=== PATIENT | male | born 2000 | race Caucasian/White ===

== ENCOUNTER 2019-06-23 07:15 | Day surgery (SDC) | payer OTHER ==
[2019-06-23] MEDS ORDERED: FENTANYL CITRATE INJ/PF 100 MCG/2 ML AMPUL ONE ×2 (07:42→13:34)
[2019-06-23] MEDS ORDERED: HYDROMORPHONE HCL INJ/PF 2 MG/ML AMPULE ONE (07:42)
[2019-06-23] MEDS ORDERED: PROPOFOL INJ 200 MG/20 ML VIAL IV ONE ×2 (07:42→13:35)
[2019-06-23] MEDS ORDERED: MIDAZOLAM 2 MG/2 ML INJ ONE ×2 (07:42→13:35)
[2019-06-23] MEDS ORDERED: CEFAZOLIN SODIUM 2 GM in DEXTROSE 5%-WATER 100 ML IV PRN (08:00)
[2019-06-23] MEDS ORDERED: CEFAZOLIN INJ 1 GM VIAL ONE (08:22)
[2019-06-23] MEDS ORDERED: BUPIVACAINE HCL 0.5 % INJ/PF 30 ML SDV ONE (08:49)
[2019-06-23] MEDS ORDERED: LIDOCAINE 1% INJ-PF (10 MG/ML) 30 ML SDV ONE (08:50)
[2019-06-23] MEDS ORDERED: EPHEDRINE SULFATE INJ 50 MG/1 ML AMPULE ONE (09:53)
[2019-06-23] MEDS ORDERED: ROCURONIUM BROMIDE INJ 50 MG/5 ML VIAL IV ONE (10:16)
[2019-06-23] MEDS ORDERED: ONDANSETRON HCL INJ/PF 4 MG/2 ML SDV ONE ×2 (10:16→11:57)
[2019-06-23] MEDS ORDERED: KETOROLAC TROMETHAMINE 60 MG/2 ML SDV ONE (10:16)
[2019-06-23] MEDS ORDERED: DEXAMETHASONE SOD PHOSPHATE INJ 4 MG/1 ML VIAL ONE (10:16)
[2019-06-23] MEDS ORDERED: SUCCINYLCHOLINE CHLORIDE INJ 200 MG/10 ML VIAL ONE (10:16)
[2019-06-23] MEDS ORDERED: MORPHINE SULFATE 10 MG/ML INJ IV PRN ×2 (10:56→11:57)
[2019-06-23] MEDS ORDERED: DIPHENHYDRAMINE HCL 50 MG/ML VIAL IV PRN (10:56)
[2019-06-23] MEDS ORDERED: PROMETHAZINE HCL INJ 25 MG/1 ML VIAL IV PRN ×2 (10:56)
[2019-06-23] MEDS ORDERED: FENTANYL CITRATE INJ/PF 100 MCG/2 ML AMPUL IV PRN ×3 (10:56)
[2019-06-23] MEDS ORDERED: MEPERIDINE HCL/PF INJ 25 MG/1 ML DISP.SYRIN IV PRN (10:56)
[2019-06-23] MEDS ORDERED: OXYCODONE-ACETAMINOPHEN 5-325 MG TABLET PO PRN ×3 (10:56→11:57)
--- NOTE | 2019-06-23 11:58 | Discharge Summary ---
Discharge Summary (SDC) - Discharge Final Diagnosis: Right fourth metacarpal shaft fracture Date of Surgery: 06/23/19 Discharge Date: 06/23/19 Condition: Good Forms: ASU Anesthesia D/C Instruction, Discharge POC-Surgical Service Treatment or Instructions: Schedule Follow Up w/ Dr. Nathan Velez @ [facility] for Surgery to be seen in 10-14 days or as scheduled [place]: [place]: [place]: Ice and elevate Keep splint clean/dry/intact, do not remove. If your fingers become numb please unwrap the [place]es wrap but leave the splint in place, if the sensation does not return within 30 minutes please return to the emergency department. May begin finger range of motion attempting to make full fist. Please use ibuprofen (Motrin or Advil) 600-800 mg every 8 hours as needed for pain or fever DO NOT TAKE w/ TORADOL may use once TORADOL complete. You may also use acetaminophen (Tylenol) 1000 mg every 4-6 hours as needed for pain or fever. Please be aware that many medications contain acetaminophen, do not exceed a total of 1000 mg of acetaminophen every 6 hours. If ibuprofen and acetaminophen are not sufficient for your pain you may take the Percocet/Merriman. Please be aware that the Percocet/Merriman does contain Tylenol. Stool softener of choice when on pain medication. USE OF [id number] IBUPROFEN: Ibuprofen (Advil, Nuprin, Medipren, Motrin IB) is a medication for fever and pain control. In addition, it has anti- inflammatory effects which may be beneficial, especially in the treatment of injuries. It's best to take ibuprofen with food. Persons with ulcer disease or allergy to aspirin should notify their physician of this before taking ibuprofen. Ibuprofen can be given every four to six hours, for a total of four doses daily. Age Pain or fever dose Antiinflammatory dose 6-8 yr 200 mg (1 tab) 200 mg (1 tab) 9-11 yr 200 mg (1 tab) 200-400 mg (1-2 tab) 11-14 yr 200-400 mg (1-2 tab) 400 mg (2 tab) 15-adult 400 mg (2 tab) 600 mg (3 tab) ORAL NARCOTIC MEDICATION: You have been given a prescription for pain control. This medication is a narcotic. It's best taken with food, as nausea can result if taken on an empty stomach. Don't operate machinery or drive within six hours of taking this medication. Do not combine this medicine with alcohol, or with any medication which can cause sedation (such as cold tablets or sleeping pills) unless you get permission from the physician. Narcotics tend to cause constipation. If possible, drink plenty of fluids and eat a diet high in fiber and fruits. Please be aware that prescription narcotics also have the potential for abuse. People become addicted to these medications because of the general sense of wellbeing that they induce. This feeling along with a significant reduction in tension, anxiety, and aggression provides a stimulating seductive quality to these drugs. Once your pain is under control, we encourage you to discard your unused narcotics. Prescriptions: Oxycodone HCl/Acetaminophen [Percocet 5-325 mg Tablet] 1 tab PO Q6 PRN #25 tab PRN Reason: Discharge Diet: As Tolerated Respiratory Treatments at Home: Deep Breathing/Coughing Discharge Activity: No Lifting Over 10 Pounds, No Lifting/Push/Pulling Report the Following to Your Physician Immediately: Fever over 101 Degrees, Unusual Bleeding, Redness, Swelling, Warmth
--- NOTE | 2019-06-23 12:01 | Operative Report ---
Operative Report DATE OF SURGERY: 06/23/19 PREOPERATIVE DIAGNOSIS: Right fourth metacarpal shaft fracture POSTOPERATIVE DIAGNOSIS: Same OPERATION: ORIF right fourth metacarpal shaft SURGEON: CONNOR MCDANIELS ANESTHESIA: GA COMPLICATIONS: None ESTIMATED BLOOD LOSS: Minimal PROCEDURE: Indication for above procedure: 19-year-old male who sustained a fracture of his fourth metacarpal when punching a wall. Patient was seen at [facility] where x-rays confirmed fracture patient was attempted be treated conservatively but developed shortening and angulation at that point decision was made to proceed with operative intervention. I discussed risks and benefits of operative procedure patient verbalized understanding consented for surgical procedure. Procedure In Detail: Patient was seen and evaluated in the preoperative holding area. The RIGHT upper extremity was initialized and marked. Patient received 2g of Ancef IV for bacterial prophylaxis. Patient was taken back to the operative room where transferred to the operative table and placed under general anesthesia. Once they were adequately anesthetized a nonsterile tourniquet was placed on the upper extremity. A surgical team debriefing was performed ensuring all instrumentation was available, the surgical procedure was discussed with possible concerns reviewed. The upper extremity was prepped with chlorhexidine and alcohol and draped in a sterile fashion. A timeout was done identifying correct patient, procedure and extremity everyone in attendance agree with this and verbalized no concerns. The extremity was exsanguinated the tourniquet was inflated to 250 mmHg. Longitudinal skin incision was made over the fourth metacarpal. Blunt dissection was performed. Interval between the EDC and EDM was established. Dorsal interossei was elevated to expose the underlying fracture. Supraperiosteal dissection was performed proximally and distally. Intervening granulation tissue at the fracture site was sharply excised. Under direct visualization the oblique fracture was anatomically reduced. Via lag screw technique a 1.7 mm [place] compression screw was placed perpendicular to the fracture site maintaining anatomic reduction. C-arm fluoroscopy was then obtained confirming adequate reduction there was no evidence of malrotation. A Eloy 2.3 mm Y-shaped plate was then placed and confirmed with C arm fluoroscopy. Cortical fixation was then obtained proximally and distally to the fracture. Additional cortex screw and locking screw was placed along the proximal aspect. Locking screw was placed along the distal aspect. There was no evidence of malrotation with tenodesis. C arm fluoroscopy was obtained confirming appropriate placement of the plate and reduction of the fracture. Wound was copiously irrigated with normal saline. 20 cc of 0.5% Vivacaine without epinephrine was injected for postoperative pain control. Dorsal interossei fascia was closed with interrupted 3-0 Vicryl suture. Subcutaneous tissues closed with interrupted 3-0 Vicryl suture. Skin was closed running subcuticular 4-0 Monocryl reinforced with Dermabond and Steri-Strips. Patient was placed in a short arm splint immobilizing the fourth MCP joint with the IP joints free. Sponge counts, instrument counts, needle counts were correct. Patient was then awoken from anesthesia. Transferred from the operating room table to the operating room stretcher. There was no intraoperative complications patient tolerated procedure well stable to PACU. Postop plan: Patient follow in the office in 2 weeks at which point we will obtain radiographs and transition to Exos fracture brace
[2019-06-23] MEDS ORDERED: OXYCODONE-ACETAMINOPHEN 5-325 MG TABLET ONE (13:06)
--- NOTE | 2019-06-23 13:11 | RADIOLOGY REPORT (SQ) ---
EXAM DESCRIPTION: NO CHG FLUORO; HAND RIGHT 3 VIEWS IMAGES COMPLETED DATE/TIME: 06/23/2019 12:54 pm REASON FOR STUDY: ORIF RIGHT 4TH METACARPAL ASSISTED WITH FLUORO IN OR S62.324D DISP FX OF SHAFT OF 4TH MC BONE, R HAND, 7THD COMPARISON: None. FLUOROSCOPY TIME: 7 seconds 4 images saved to PACS. TECHNIQUE: Intra-operative images acquired during surgical procedure to evaluate progress. NUMBER OF IMAGES: 4 LIMITATIONS: None. FINDINGS: Status post open reduction internal fixation of ring finger metacarpal fracture with anato shayne alignment. Correlate with operative note. IMPRESSION: IMAGE(S) OBTAINED DURING PROCEDURE. COMMENT: Quality ID [id number]: Final reports for procedures using fluoroscopy that document radiation exp osure indices, or exposure time and number of fluorographic images (if radiation exposure indices are not available) Please consult full operative report of the attending physician for description of the procedure. TECHNICAL DOCUMENTATION: JOB ID: [id number] 2010 [employer]- All Rights Reserved Reading location - IP/workstation name: [email or web address]
--- NOTE | 2019-06-23 13:11 | RADIOLOGY REPORT (SQ) ---
EXAM DESCRIPTION: NO CHG FLUORO; HAND RIGHT 3 VIEWS IMAGES COMPLETED DATE/TIME: 06/23/2019 12:54 pm REASON FOR STUDY: ORIF RIGHT 4TH METACARPAL ASSISTED WITH FLUORO IN OR S62.324D DISP FX OF SHAFT OF 4TH MC BONE, R HAND, 7THD COMPARISON: None. FLUOROSCOPY TIME: 7 seconds 4 images saved to PACS. TECHNIQUE: Intra-operative images acquired during surgical procedure to evaluate progress. NUMBER OF IMAGES: 4 LIMITATIONS: None. FINDINGS: Status post open reduction internal fixation of ring finger metacarpal fracture with anato shayne alignment. Correlate with operative note. IMPRESSION: IMAGE(S) OBTAINED DURING PROCEDURE. COMMENT: Quality ID [id number]: Final reports for procedures using fluoroscopy that document radiation exp osure indices, or exposure time and number of fluorographic images (if radiation exposure indices are not available) Please consult full operative report of the attending physician for description of the procedure. TECHNICAL DOCUMENTATION: JOB ID: [id number] 2010 [employer]- All Rights Reserved Reading location - IP/workstation name: [email or web address]
[2019-06-23 14:45] VITALS: BP 121/76
== END 2019-06-23 14:35 | disposition home or self-care (01) ==
LOC: OROUT 07:15
PROVIDERS: ATTEND Orthopaedic Surgery
DX: S62.324A Displaced fracture of shaft of fourth metacarpal bone, right hand, initial encounter for closed fracture (principal); W22.09XA Striking against other stationary object, initial encounter
CPT/HCPCS: 73130; 26615; J2250; J3490 ×2; J0690; J1100; J1885; J1170; J0330; J2405; J7060; J2704; 01830; C1713; J3010